=== PATIENT | male | born 1975 | race African-American/Black ===

== ENCOUNTER 2019-04-11 10:53 | Emergency (ER) | payer SELFPAY ==
[~2019-04-11] VITALS: Ht 182.9 cm; Wt 103.9 kg
[2019-04-11 11:18] VITALS: BP 121/74
[2019-04-11] MEDS ORDERED: TETRACAINE HCL 0.5% OPTH(EYE) SOLN 4ML ONE (11:26)
[2019-04-11] MEDS ORDERED: FLUORESCEIN SOD 1 MG TEST STRIP ONE (11:26)
[2019-04-11] MEDS ORDERED: TETRACAINE HCL 0.5% OPTH(EYE) SOLN 4ML LEFTEYE ONE (12:00)
[2019-04-11] MEDS ORDERED: FLUORESCEIN SOD 1 MG TEST STRIP LEFTEYE ONE (12:00)
== END 2019-04-11 12:40 | disposition home or self-care (01) ==
LOC: ER 10:53
DX: H10.32 Unspecified acute conjunctivitis, left eye (principal)